=== PATIENT | female | born 1965 | race Caucasian/White ===

== ENCOUNTER 2020-12-25 11:27 | Day surgery (SDC) | payer SELFPAY ==
[2020-12-20 10:20] VITALS: BMI 27.9
[2020-12-25] MEDS ORDERED: MIDAZOLAM HCL 2 MG/2 ML SINGLE DOSE VIAL ONE (13:21)
[2020-12-25] MEDS ORDERED: PROPOFOL 20 ML ONE ×2 (13:21→16:57)
[2020-12-25] MEDS ORDERED: ROCURONIUM BROMIDE 50 MG/5 ML SYRINGE ONE ×2 (13:21→14:44)
[2020-12-25] MEDS ORDERED: EPINEPHrine/PF 1 MG/1 ML (1:1,000) AMPULE ONE (13:28)
[2020-12-25] MEDS ORDERED: DEXAMETHASONE SOD PHOSPHATE 4 MG/1 ML VIAL ONE (14:00)
[2020-12-25] MEDS ORDERED: ONDANSETRON 4 MG/2 ML VIAL ONE ×2 (14:00→17:06)
[2020-12-25] MEDS ORDERED: LIDOCAINE HCL/PF 2% SDV 5ML VIAL ONE (14:00)
[2020-12-25] MEDS ORDERED: ceFAZolin SODIUM 1 GM VIAL ONE (14:00)
[2020-12-25] MEDS ORDERED: LIDOCAINE HCL 2% JELLY (5 ML/TUBE) ONE (14:00)
[2020-12-25] MEDS ORDERED: HEPARIN NA (PORCINE) 5,000 UNITS/ML 1ML VIAL ONE ×2 (14:02→14:03)
[2020-12-25] MEDS ORDERED: BUPIVACAINE HCL/PF 2.5 MG/ML - 30 ML VIAL IJ ONE (14:04)
[2020-12-25] MEDS ORDERED: BUPIVACAINE HCL/PF 0.25% (2.5MG/ML) 10 ML VIAL ONE (14:04)
[2020-12-25] MEDS ORDERED: ONDANSETRON 4 MG/2 ML VIAL IVPUSH PRN (14:13)
[2020-12-25] MEDS ORDERED: LACTATED RINGERS SOLUTION 1,000 ML IV SCH ×2 (14:15→18:00)
[2020-12-25] MEDS ORDERED: BUPIVACAINE LIPOSOME/PF (EXPAREL) 266 MG/20 ML VIAL ONE (14:29)
[2020-12-25] MEDS ORDERED: EPHEDRINE SULFATE/0.9% NACL/PF 50 MG/10 ML SYRINGE NR ONE (14:46)
[2020-12-25] MEDS ORDERED: BUPIVACAINE LIPOSOME/PF (EXPAREL) 266 MG/20 ML VIAL IJ ONE (15:07)
[2020-12-25] MEDS ORDERED: BUPIVACAINE HCL/PF 0.25% (2.5MG/ML) 10 ML VIAL IJ ONE (15:07)
[2020-12-25] MEDS ORDERED: SEVOFLURANE 250 ML BTL ONE (15:36)
[2020-12-25] MEDS ORDERED: NEOSTIGMINE METHYLSULFATE 0.5 MG/1 ML - 10 ML MDV ONE (16:40)
[2020-12-25] MEDS ORDERED: BACITRACIN 15 GM TUBE TOPICAL OINTMENT ONE (16:41)
[2020-12-25] MEDS ORDERED: GLYCOPYRROLATE 0.2 MG/1 ML VIAL ONE (16:41)
[2020-12-25] MEDS ORDERED: NITROGLYCERIN 2% OINTMENT - 1GM PACKET TD ONE ×2 (16:41→16:47)
[2020-12-25] MEDS ORDERED: oxyCODONE HCL 5 MG TABLET PO PRN ×3 (17:43→17:47)
[2020-12-25] MEDS ORDERED: ONDANSETRON 4 MG/2 ML VIAL IVPB PRN (17:47)
[2020-12-25] MEDS ORDERED: ALBUTEROL SO4 HFA INHALER IH PRN (17:51)
[2020-12-25] MEDS ORDERED: PROMETHAZINE HCL 25 MG/1 ML VIAL IVPUSH PRN (18:27)
[2020-12-25] MEDS ORDERED: ACETAMINOPHEN 1000 MG/100 ML VIAL (NON FORMULARY) IVPB ONE ×2 (18:31→18:43)
[2020-12-25] MEDS ORDERED: ACETAMINOPHEN INJECTION 100 ML IVPB ONE (18:38)
[2020-12-25] MEDS ORDERED: PROMETHAZINE HCL 25 MG/1 ML VIAL ONE (18:38)
[2020-12-25] MEDS ORDERED: PROMETHAZINE HCL 25 MG/1 ML VIAL IVPUSH ONE (18:42)
[2020-12-25] MEDS: MORPHINE SULFATE 2 MG/ML VIAL IVPUSH PRN (22:27)
[2020-12-26 06:22] VITALS: BP 98/51; PULSE 68; TEMP 98.2
[2020-12-26] MEDS ORDERED: HEPARIN NA (PORCINE) 5,000 UNITS/ML 1ML VIAL SQ SCH (08:00)
[2020-12-26] MEDS: MORPHINE SULFATE 2 MG/ML VIAL IVPUSH PRN (08:01)
== END 2020-12-26 10:29 | disposition home or self-care (01) ==
LOC: FASUSAT 11:27 → FM/S 19:55 → FASUSAT 12-26 10:29
PROVIDERS: ATTEND Plastic Surgery
PROC: 0J080ZZ Alteration of Abdomen Subcutaneous Tissue and Fascia, Open Approach (ICD-10-PCS; principal; 2020-12-25 14:17)
DX: Z41.1 Encounter for cosmetic surgery (principal)
CPT/HCPCS: 88300-TC; 94760; J0131; J1644

== ENCOUNTER → 2021-08-02 | Day surgery (SDC) | payer OTHER | END | disposition home or self-care (01) | LOC: FMAMMOTONE 08:30 | PROVIDERS: ATTEND Obstetrics & Gynecology | PROC: 0HBU3ZX Excision of Left Breast, Percutaneous Approach, Diagnostic (ICD-10-PCS; principal; 2021-08-02) | DX: R92.8 Other abnormal and inconclusive findings on diagnostic imaging of breast (principal) | CPT/HCPCS: 19081 ==